=== PATIENT | female | born 1995 | race Caucasian/White ===

== ENCOUNTER 2016-07-06 11:29 | Emergency (ER) | payer BC, OTHER ==
[~2016-07-06] VITALS: Ht 175.3 cm; Wt 80.0 kg
[~2016-07-06 11:29] MED LIST: DOXY100T PO; MACR100C PO
[2016-07-06 11:31] VITALS: BP 137/76; PULSE 97; RESP 12; TEMP 98.5; O2SAT 100
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
[2016-07-06 14:03] LABS: BASOPHIL % 0.3 % (0.0-2.0); EOSINOPHIL # 0.1 TH/MM3 (0-0.4); HEMATOCRIT 37.4 % (35.0-46.0); HEMO FLAGS DIFF FINAL; LYMPH % 14.5 % (9.0-44.0); LYMPHOCYTE # 1.3 TH/MM3 (1.0-4.8); MEAN CELL VOLUME 82.8 FL (80.0-100.0); MEAN CORPUSCULAR HEMOGLOBIN 27.7 PG (27.0-34.0); MEAN CORPUSCULAR HGB CONC 33.5 % (32.0-36.0); MONO % 5.8 % (0.0-8.0); NEUT % 78.4 % (16.0-70.0); PLATELET COUNT 219 TH/MM3 (150-450); RED BLOOD COUNT 4.52 MIL/MM3 (4.00-5.30)
[2016-07-06 14:24] LABS: POTASSIUM 3.8 MEQ/L (3.5-5.1)
[2016-07-06 15:03] LABS: BETA HCG QUANT 4669 MIU/ML (0-5)
--- NOTE | 2016-07-06 16:59 | RADRPT ---
EXAM DATE/TIME: 07/06/2016 15:39 [place] COMPARISON: No previous studies available for comparison. INDICATIONS : Pelvic pain and bleeding with . LAB(S): Beta-hC MEDICAL HISTORY : . SURGICAL HISTORY : section. Fatty tumor removed from face. ENCOUNTER: Initial ACUITY: 3 days PAIN SCORE: 2/10 LOCATION: Bilateral pelvis MEASUREMENTS: UTERUS: 9.4 x 8.3 x 6.3 cm ENDOMETRIAL STRIPE: 4 mm RIGHT OVARY: 3.1 x 3.2 x 2.0 cm LEFT OVARY: 2.7 x 1.5 x 1.1 cm FINDINGS: UTERUS: The uterus is retroflexed with an irregularly shaped gestational sac. A yolk sac is present measuring 9 mm with no definite pole or heart beat. A small amount of fluid is noted in the cervical can al. There are multiple nabothian cysts. RIGHT OVARY: Ovary contains no mass or significant cystic lesion. LEFT OVARY: Ovary contains no mass or significant cystic lesion. MISCELLANEOUS: Trace fluid is present. CONCLUSION: 1. Small irregularly shaped gestational sac with small apparent yolk sac. There is no pole or h eart beat. 2. Trace fluid in the adnexa with no evidence of an adnexal mass. The ovaries are unremarkable. Devante Licona MD on July 06, 2016 at 16:55 Board Certified Radiologist. This report was verified electronically.
[2016-07-06 18:07] LABS: BACTERIA, URINE RARE /hpf; BLOOD, URINE MOD (NEG); COMMENT (UR) CULT NOT INDICATED; CULTURE IF INDICATED CULT NOT INDICATED; GLUCOSE,URINE NEG (NEG); KETONE, URINE NEG (NEG); SQUAMOUS EPITHELIAL CELL URINE 1 /hpf (0-5); URINE COLOR YELLOW (YELLW/STRAW)
[2016-07-06 18:09] LABS: NITRITE,URINE POS (NEG)
[2016-07-06] MEDS ORDERED: MACR100C2 PO (18:10)
== END 2016-07-06 18:23 | disposition home or self-care (01) ==
LOC: NETRI 11:29
DX: O20.0 Threatened abortion (principal); O23.40 Unspecified infection of urinary tract in pregnancy, unspecified trimester; Z72.0 Tobacco use; F12.90 Cannabis use, unspecified, uncomplicated; Z3A.00 Weeks of gestation of pregnancy not specified
CPT/HCPCS: 76700; 76817; 80048; 81001; 84702; 85025; 86901

== ENCOUNTER 2016-07-09 15:34 | Emergency (ER) | payer OTHER ==
[~2016-07-09] VITALS: Ht 175.3 cm; Wt 72.5 kg
[~2016-07-09 15:34] MED LIST changes: +MACR100C2 PO
[2016-07-09 15:36] VITALS: BP 127/75; PULSE 83; RESP 16; TEMP 97.9; O2SAT 98
--- NOTE | 2016-07-09 18:35 | PD ---
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 The patient reports that she is approximately one month with a last menstrual period of April 23. She reports over the past 5 days she's been having some vaginal bleeding on a daily basis, going through several pads a day. She is also had some super pubic cramping for the past 3 days. The patient reports that she was seen here on July 06 an ultrasound that day revealed an irregularly shaped gestational sac. She was diagnosed with threatened . She reports continued bleeding since then and over the past 2 days has been feeling lightheaded, nauseous, dizzy. Symptoms are worse when standing, improved when lying down. She is currently staying at a domestic group home and she was encouraged to return here for additional evaluation. Denies any dysuria, flank pain, chest pain or shortness of breath, palpitations. She has no other complaints at this time. PFSH Past Medical History Hx Anticoagulant Therapy: No Cardiovascular Problems: No Chemotherapy: No Cerebrovascular Accident: No Diabetes: No Respiratory: No ?: LMP: 4 weeks ago : 1 Para: 1 Past Surgical History Section: Yes Hysterectomy: No Other Surgery: Yes (FATTY TUMOR REMOVED FROM RIGHT FACE) Social History Alcohol Use: No Tobacco Use: Yes (4-5 cigarettes a day) Substance Use: Yes (marijuana a couple of weeks ago) Allergies-Medications (Allergen,Severity, Reaction): Coded Allergies: No Known Allergies (Unverified , 07/09/16) Reported Meds & Prescriptions Reported Meds & Active Scripts Active Macrobid (Nitrofurantoin Monoh/Nitrofur Macro) 100 Mg Cap 100 Mg PO BID 10 Days Macrobid (Nitrofurantoin Macrocrystals) 100 Mg Cap 100 Mg PO BID Doxycycline Hyclate 100 mg (Doxycycline Hyclate) 100 Mg Tab 1 Tab PO Q12H 7 Days Review of Systems Except as stated in HPI: all other systems reviewed are Neg Physical Exam Narrative GENERAL: Well-developed well-nourished female in no acute distress. SKIN: Warm and dry. HEAD: Atraumatic. Normocephalic. EYES: Pupils equal and round. No scleral icterus. No injection or drainage. ENT: No nasal bleeding or discharge. Mucous membranes pink and moist. NECK: Trachea midline. No JVD. CARDIOVASCULAR: Regular rate and rhythm. No murmur appreciated. RESPIRATORY: No accessory muscle use. Clear to auscultation. Breath sounds equal bilaterally. GASTROINTESTINAL: Abdomen soft, mild superior pubic tenderness without guarding. MUSCULOSKELETAL: No obvious deformities. No edema. NEUROLOGICAL: Awake and alert. No obvious cranial nerve deficits. Motor grossly within normal limits. Normal speech. Data Data Last Documented VS Vital Signs Date Time Temp Pulse Resp B/P Pulse Ox O2 Delivery O2 Flow Rate FiO2 07/09/16 15:36 97.9 83 16 127/75 98 Orders Complete Blood Count With Diff (07/09/16 18:07) Basic Metabolic Panel (Bmp) (07/09/16 18:07) Electrocardiogram (07/09/16 ) Beta Hcg (Quant/Titer) (07/09/16 18:07) Urinalysis - C+S If Indicated (07/09/16 18:07) Urine Culture (07/09/16 18:50) Labs Laboratory Tests Test 07/09/16 07/09/16 18:26 18:50 White Blood Count 5.1 TH/MM3 Red Blood Count 4.11 MIL/MM3 Hemoglobin 11.3 GM/DL Hematocrit 34.3 % Mean Corpuscular Volume 83.3 FL Mean Corpuscular Hemoglobin 27.3 PG Mean Corpuscular Hemoglobin 32.8 % Concent Red Cell Distribution Width 13.7 % Platelet Count 211 TH/MM3 Mean Platelet Volume 8.0 FL Neutrophils (%) (Auto) 55.8 % Lymphocytes (%) (Auto) 34.4 % Monocytes (%) (Auto) 7.3 % Eosinophils (%) (Auto) 1.8 % Basophils (%) (Auto) 0.7 % Neutrophils # (Auto) 2.8 TH/MM3 Lymphocytes # (Auto) 1.7 TH/MM3 Monocytes # (Auto) 0.4 TH/MM3 Eosinophils # (Auto) 0.1 TH/MM3 Basophils # (Auto) 0.0 TH/MM3 CBC Comment DIFF FINAL Differential Comment Sodium Level 140 MEQ/L Potassium Level 3.6 MEQ/L Chloride Level 106 MEQ/L Carbon Dioxide Level 24.8 MEQ/L Anion Gap 9 MEQ/L Blood Urea Nitrogen 10 MG/DL Creatinine 0.82 MG/DL Estimat Glomerular Filtration 89 ML/MIN Rate Random Glucose 110 MG/DL Calcium Level 8.4 MG/DL Human Chorionic Gonadotropin, 503 MIU/ML Quant Urine Color YELLOW Urine Turbidity HAZY Urine pH 6.0 Urine Specific [place] 1.020 Urine Protein 30 mg/dL Urine Glucose (UA) NEG mg/dL Urine Ketones 10 mg/dL Urine Occult Blood MOD Urine Nitrite POS Urine Bilirubin NEG Urine Urobilinogen LESS THAN 2.0 MG/DL Urine Leukocyte Esterase TRACE Urine RBC 1 /hpf Urine WBC 9 /hpf Urine Squamous Epithelial 9 /hpf Cells Urine Bacteria OCC /hpf Urine Mucus FEW /lpf Microscopic Urinalysis Comment CULTURE INDICATED MDM Medical Decision Making Medical Screen Exam Complete: Yes Emergency Medical Condition: Yes Medical Record Reviewed: Yes Differential Diagnosis Acute anemia, inevitable , incomplete , missed , dehydration, electrolyte abnormalities Narrative Course 21-year-old female who is with 5 days of vaginal bleeding now feeling lightheaded and dizzy and nauseous whenever she stands for the past 2 days. The patient had a ultrasound performed here 3 days ago revealing an irregularly- shaped gestational sac. The patient also seemed to have a UTI with positive nitrites, no culture was performed. She was given a prescription for Macrobid but she was unable to fill it. The patient was initially seen in triage where lab work was performed. The patient will be moved to a medical bed when one becomes available. 2004: I been told by the triage nurse of this patient apparently has left when he was trying to call her for her medical bed. She left AMA without notifying anyone. 2051: I have Been notified that the patient has been found waiting in the pediatric waiting room. She was just sent to a medical pod. Brian Swan Jul 09, 2016 18:35
[2016-07-09 18:57] LABS: BICARBONATE 24.8 MEQ/L (21.0-32.0); POTASSIUM 3.6 MEQ/L (3.5-5.1)
[2016-07-09 19:00] LABS: AUTOMATED NEUTROPHIL # 2.8 TH/MM3 (1.8-7.7); BASOPHIL % 0.7 % (0.0-2.0); EOSINOPHIL # 0.1 TH/MM3 (0-0.4); EOSINOPHIL % 1.8 % (0.0-4.0); HEMATOCRIT 34.3 % (35.0-46.0); HEMO FLAGS DIFF FINAL; LYMPH % 34.4 % (9.0-44.0); LYMPHOCYTE # 1.7 TH/MM3 (1.0-4.8); MEAN CELL VOLUME 83.3 FL (80.0-100.0); MEAN CORPUSCULAR HEMOGLOBIN 27.3 PG (27.0-34.0); MEAN CORPUSCULAR HGB CONC 32.8 % (32.0-36.0); MONO % 7.3 % (0.0-8.0); NEUT % 55.8 % (16.0-70.0); PLATELET COUNT 211 TH/MM3 (150-450); RED BLOOD COUNT 4.11 MIL/MM3 (4.00-5.30); RED CELL DISTRIBUTION WIDTH 13.7 % (11.6-17.2); WHITE BLOOD COUNT 5.1 TH/MM3 (4.0-11.0)
[2016-07-09 19:30] LABS: BACTERIA, URINE OCC /hpf; BLOOD, URINE MOD (NEG); COMMENT (UR) CULTURE INDICATED; CULTURE IF INDICATED CULTURE INDICATED; GLUCOSE,URINE NEG (NEG); KETONE, URINE 10 mg/dL (NEG); MUCUS URINE FEW /lpf (OCC); NITRITE,URINE POS (NEG); SQUAMOUS EPITHELIAL CELL URINE 9 /hpf (0-5); URINE COLOR YELLOW (YELLW/STRAW)
[2016-07-09] MEDS ORDERED: MACR100C2 PO (21:11)
--- NOTE | 2016-07-09 21:11 | PD ---
Data Data Last Documented VS Vital Signs Date Time Temp Pulse Resp B/P Pulse Ox O2 Delivery O2 Flow Rate FiO2 07/09/16 15:36 97.9 83 16 127/75 98 Orders Complete Blood Count With Diff (07/09/16 18:07) Basic Metabolic Panel (Bmp) (07/09/16 18:07) Electrocardiogram (07/09/16 ) Beta Hcg (Quant/Titer) (07/09/16 18:07) Urinalysis - C+S If Indicated (07/09/16 18:07) Urine Culture (07/09/16 18:50) Labs Laboratory Tests Test 07/09/16 07/09/16 18:26 18:50 White Blood Count 5.1 TH/MM3 Red Blood Count 4.11 MIL/MM3 Hemoglobin 11.3 GM/DL Hematocrit 34.3 % Mean Corpuscular Volume 83.3 FL Mean Corpuscular Hemoglobin 27.3 PG Mean Corpuscular Hemoglobin 32.8 % Concent Red Cell Distribution Width 13.7 % Platelet Count 211 TH/MM3 Mean Platelet Volume 8.0 FL Neutrophils (%) (Auto) 55.8 % Lymphocytes (%) (Auto) 34.4 % Monocytes (%) (Auto) 7.3 % Eosinophils (%) (Auto) 1.8 % Basophils (%) (Auto) 0.7 % Neutrophils # (Auto) 2.8 TH/MM3 Lymphocytes # (Auto) 1.7 TH/MM3 Monocytes # (Auto) 0.4 TH/MM3 Eosinophils # (Auto) 0.1 TH/MM3 Basophils # (Auto) 0.0 TH/MM3 CBC Comment DIFF FINAL Differential Comment Sodium Level 140 MEQ/L Potassium Level 3.6 MEQ/L Chloride Level 106 MEQ/L Carbon Dioxide Level 24.8 MEQ/L Anion Gap 9 MEQ/L Blood Urea Nitrogen 10 MG/DL Creatinine 0.82 MG/DL Estimat Glomerular Filtration 89 ML/MIN Rate Random Glucose 110 MG/DL Calcium Level 8.4 MG/DL Human Chorionic Gonadotropin, 503 MIU/ML Quant Urine Color YELLOW Urine Turbidity HAZY Urine pH 6.0 Urine Specific [place] 1.020 Urine Protein 30 mg/dL Urine Glucose (UA) NEG mg/dL Urine Ketones 10 mg/dL Urine Occult Blood MOD Urine Nitrite POS Urine Bilirubin NEG Urine Urobilinogen LESS THAN 2.0 MG/DL Urine Leukocyte Esterase TRACE Urine RBC 1 /hpf Urine WBC 9 /hpf Urine Squamous Epithelial 9 /hpf Cells Urine Bacteria OCC /hpf Urine Mucus FEW /lpf Microscopic Urinalysis Comment CULTURE INDICATED MDM Supervised Visit with RACHID: Yes Narrative Course Assumed care patient. Ratio with threatened AB, ultrasound showing irregular gestational sac, hCG was 4000, now dropped to 500. Cramping and bleeding is significantly improved. Came in today she started some lightheadedness. Hemoglobin shows minimal drop, now 11.3. Patient states overall feeling much better. She lost her prescription for antibiotics. We'll rewrite her Macrobid, outpatient follow-up. Diagnosis Primary Impression: Miscarriage Additional Impression: UTI (urinary tract infection) Qualified Code: N30.00 - Acute cystitis without hematuria Patient Instructions: General Instructions Additional Instruction: Antibiotics as prescribed. Drink plenty of fluids stay well-hydrated. Follow-up with her primary doctor in the next 2-4 days. Return to the emergency department for any new or worsening symptoms. Med/Other Pt SpecificInfo: Prescription(s) given Scripts Nitrofurantoin Monohydrate Macrocrystals (Macrobid)100 Mg [id number] Mg PO BID 10 Days Ref 0 Prov:Jimmy Tubbs MD 07/09/16 Disposition: 01 DISCHARGE HOME Condition: Stable Jimmy Tubbs MD Jul 09, 2016 21:11
--- NOTE | 2016-07-10 13:14 | EKG ---
Date Performed: 07/09/2016 Time Performed: 18:43:30 PTAGE: 21 years EKG: SINUS BRADYCARDIA BORDERLINE ECG Compared to prior tracing no significant change PREVIOUS TRACING : 10/11/2014 13.05 DOCTOR: Anton Lundy Interpretating Date/Time 07/10/2016 13:12:20
== END 2016-07-09 21:27 | disposition home or self-care (01) ==
LOC: NETRI 15:34 → NEPE 21:27
DX: O03.9 Complete or unspecified spontaneous abortion without complication (principal); N30.00 Acute cystitis without hematuria; R42 Dizziness and giddiness; R94.31 Abnormal electrocardiogram [ECG] [EKG]; Z72.0 Tobacco use; Z3A.00 Weeks of gestation of pregnancy not specified
CPT/HCPCS: 80048; 81001; 84702; 85025; 87086; 93005